=== PATIENT | female | born 1990 | race Caucasian/White ===

== ENCOUNTER → 2021-05-01 | Outpatient (CLI) | payer MEDICAID | END | disposition home or self-care (01) | LOC: RAD 13:46 | PROVIDERS: ATTEND Family Medicine | DX: R60.0 Localized edema (principal) ==

== ENCOUNTER 2021-05-14 15:48 | Emergency (ER) | payer MEDICAID ==
[~2021-05-14] VITALS: Ht 172.7 cm; Wt 104.2 kg
--- NOTE | 2021-05-14 16:16 | NUR ---
PT AMBULATORY TO ROOM FROM TRIAGE, PT CHANGED INTO GOWN. MONITORS IN PLACE. PT C/O L-LE PAIN. SWELLING AND ERYTHMA NOTED. PT STATES SWELLING AND PAIN FOR 1.5 MONTHS. CALL LIGHT WITHIN REACH
--- NOTE | 2021-05-14 17:04 | NUR ---
PT RESTING ON BRITTA, ON HER PHONE. VSS/NADN. CALL LIGHT WITHIN REACH. DENIES ANY PAIN. NO NEEDS AT THIS TIME
--- NOTE | 2021-05-14 17:38 | NUR ---
MED STUDENT AT BS
[2021-05-14] MEDS ORDERED: LIDOCAINE-MPF 1%, 5ML ONE (17:41)
--- NOTE | 2021-05-14 18:10 | NUR ---
PT LAYING ON ARGELIA CALLEJAS/CASSIA. CALL LIGHT WITHIN REACH. PT AWAITING ERP FOR I&D. NO NEEDS AT THIS TIME
--- NOTE | 2021-05-14 18:16 | NUR ---
ERP & MED STUDENT AT BS FOR I&D
--- NOTE | 2021-05-14 18:32 | NUR ---
PT TOLERATED I7D WELL. NADN/VSS. CALL LIGHT WITHIN REACH. PT RESTING ON BRITTA ON HER PHONE
--- NOTE | 2021-05-14 18:57 | NUR ---
REPORT TO VALERIO MOLINA
[2021-05-14 20:03] VITALS: BP 119/74
--- NOTE | 2021-05-14 20:10 | NUR ---
spoke with pt about discharge. pt states she is curretly on her second course of keflex. spoke with erp, new prescription to be written before she leaves
== END 2021-05-14 20:48 | disposition home or self-care (01) ==
LOC: ED 16:15
DX: L03.115 Cellulitis of right lower limb (principal); M25.48 Effusion, other site
CPT/HCPCS: 82962; 99284